=== PATIENT | female | born 1985 | race Hispanic/Latino ===

== ENCOUNTER 2017-05-16 15:04 | Emergency (ER) | payer OTHER ==
[2017-05-16 15:04] VITALS: BMI 28.3
--- NOTE | 2017-05-16 17:17 | C.PDOC ---
History Of Present Illness 31 yr old female presents to the ER s/p cut from scalpel [employer]RATOR. 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 Patient denies nausea, vomiting, hand pain, arm pain, weakness or numbness. Time Seen by Provider: 05/16/17 15:20 Chief Complaint (Nursing): Medical Clearance History Per: Patient History/Exam Limitations: no limitations Onset/Duration Of Symptoms: Sudden Onset ([employer] ADMINISTRATOR) Past Medical History Reviewed: Historical Data, Nursing Documentation, Vital Signs Vital Signs: Last Vital Signs Temp 98.5 F 05/16/17 15:11 Pulse 112 H 05/16/17 15:11 Resp 20 05/16/17 15:11 BP 140/90 05/16/17 15:11 Pulse Ox 100 05/16/17 17:22 Family History: States: No Known Family Hx - Social History Hx Alcohol Use: No Hx Substance Use: No - Immunization History Hx Tetanus Toxoid Vaccination: Yes Hx Influenza Vaccination: Yes Hx Pneumococcal Vaccination: No Review Of Systems Gastrointestinal: Negative for: Nausea, Vomiting Musculoskeletal: Negative for: Arm Pain, Hand Pain Skin: Positive for: Other ((+) Cut to the tip of left index finger ) Neurological: Negative for: Weakness, Numbness Physical Exam - Physical Exam Appears: Non-toxic, No Acute Distress Skin: Warm, Dry, No Rash Head: Atraumatic, Normacephalic Extremity: Normal ROM, No Tenderness, Capillary Refill (<2), No Swelling, Other ((+) Puncture wound to the tip of left index finger. ) Neurological/Psych: Oriented x3, Normal Speech, Normal Motor ED Course And Treatment O2 Sat by Pulse Oximetry: 100 (RA) Pulse Ox Interpretation: Normal Progress Note: Blood work was offered to patient who declined stating she had similar incident 1 month ago and had blood drawn at that moment. Patient was also offered HIV meds but declined stating she would like to wait till the source patient Rapid HIV test has resulted. Medical Decision Making Medical Decision Making: pt declined hiv prophylaxis; waiting for source patient's hiv testing; now resulte, source pt is hiv neg, no PEP to be given. pt's tday utd. will d/c Disposition - Disposition Disposition: HOME/ ROUTINE Disposition Time: 17:55 Condition: STABLE Additional Instructions: Keep injured finger clean and dry. Return to ER for any signs of infection. REcommend you follow up with your doctor and with employee health. Forms: [facility] (Urdu), General Discharge Instructions - Clinical Impression Clinical Impression: Needlestick injury accident with exposure to body fluid, Medical assessment - PA / DISPLAYER MERCHANDISE / Resident Statement MD/DO has reviewed & agrees with the documentation as recorded. - Scribe Statement The provider has reviewed the documentation as recorded by the Scribe Sharri Tristan All medical record entries made by the Saeibtony were at my direction and personally dictated by me. I have reviewed the chart and agree that the record accurately reflects my personal performance of the history, physical exam, medical decision making, and the department course for this patient. I have also personally directed, reviewed, and agree with the discharge instructions and disposition.
[2017-05-16 18:05] VITALS: BP 116/80; PULSE 90; RESP 18; TEMP 98.3
[2017-05-18 12:35] VITALS: O2SAT 100
== END 2017-05-16 18:06 | disposition home or self-care (01) ==
LOC: C.ER 15:04
DX: Z77.21 Contact with and (suspected) exposure to potentially hazardous body fluids (principal); S61.211A Laceration without foreign body of left index finger without damage to nail, initial encounter; W45.8XXA Other foreign body or object entering through skin, initial encounter; Y93.F9 Activity, other caregiving; Y92.238 Other place in hospital as the place of occurrence of the external cause